=== PATIENT | male | born 1970 | race Caucasian/White ===

== ENCOUNTER 2018-05-24 02:05 | Observation (INO) ==
[2018-05-24] MEDS ORDERED: Aspirin 81 MG TAB.CHEW PO ONE (02:21)
[2018-05-24] MEDS ORDERED: *HR* FentaNYL (PF) 100 MCG/2 ML VIAL IVP ONE (02:22)
--- NOTE | 2018-05-24 02:25 | Emergency Department Note ---
Disposition Clinical Impression: Chest pain Qualifiers: Chest pain type: chest pain on breathing Qualified Code(s): R07.1 - Chest pain on breathing; R07.81 - Pleurodynia Disposition: Admitted As Inpatient Condition: Good Time of Disposition: 04:49 General Adult HPI - General Chief complaint: ED Chest Pain Stated complaint: CHEST PAIN Time Seen by Provider: 05/24/18 02:12 Source: patient Limitations: no limitations Nursing Notes Reviewed: Yes Vital Signs Reviewed: Yes - History of Present Illness HPI Narrative: Left sided chest pain sharp in nature radiates to his left shoulder does have associated shortness of breath no fevers or chills no cough. No history of any cardiac history. Is a diabetic. No provoking or alleviating factors. Began while the patient was at rest sitting in his cruiser. Pain Scale: 8 - Related Data Home Medications Medication Instructions Recorded Confirmed Aspirin [Adult Low Dose Aspirin EC] 81 mg PO QAM 12/21/15 05/09/18 Escitalopram [Lexapro] 10 mg PO QAM 12/21/15 05/09/18 Omeprazole [PriLOSEC] 20 mg PO QAM 12/21/15 05/09/18 Allergies Allergy/AdvReac Type Severity Reaction Status Date / Time iodine Allergy Swelling Verified 08/18/17 08:45 of Lip/Tongue/Throat hydrocodone [From Vicodin] AdvReac Hives Verified 08/18/17 08:46 Hydromorphone [From Dilaudid] AdvReac Nausea Verified 08/18/17 08:46 All systems ED: reviewed and negative except as stated. Constitutional: Denies: fever, chills Cardiovascular: Reports: chest pain. Denies: palpitations, syncope Respiratory: Reports: dyspnea (When he takes a deep breath it catches and hurts in the left side of his chest.). Denies: cough Gastrointestinal: Denies: abdominal pain, nausea, vomiting, diarrhea Genitourinary: Denies: urgency, dysuria, frequency Musculoskeletal: Denies: back pain, neck pain Integumentary: Denies: rash Neurological: Denies: headache, weakness, numbness, paresthesias Past Medical History - Past Medical History Attestation: Yes The following information was validated with the patient. Source: patient Medical history: Reports: diabetes, GERD, hypertension Surgical history: Reports: appendectomy, herniorrhaphy Psychiatric history: Reports: depression - Social History Smoking Status: Never smoker Smokeless Tobacco Status: No Alcohol use: Reports: none Drug use: Reports: none Physical Exam - General Limitations: no limitations General appearance: alert, in no apparent distress - Head Head exam: atraumatic, normocephalic, normal inspection - Eye Eye exam: Present: normal appearance, PERRL, EOMI - ENT ENT exam: normal exam, normal oropharynx, mucous membranes moist - Neck Neck exam: Present: normal inspection, full ROM, trachea midline - Chest Chest inspection: Present: normal inspection, symmetric chest wall rise - Respiratory Respiratory exam: Present: normal lung sounds bilaterally. Absent: respiratory distress, accessory muscle use - Cardiovascular Cardiovascular exam: Present: regular rate, normal rhythm, normal heart sounds - Abdominal Exam Abdominal exam: Present: soft, Non-Tender. Absent: tenderness, distention, guarding, rebound, rigidity - Extremities Exam Extremities exam: Present: normal inspection, full ROM. Absent: tenderness, pedal edema - Back Exam Back exam: Present: normal inspection, full ROM. Absent: tenderness - Neurological Exam Neurological exam: Present: alert, oriented X3 - Psychiatric Psychiatric exam: Present: normal affect, normal mood - Skin Skin exam: Present: warm, dry, intact, normal color Course Course Narrative: Male patient presenting complaints were complaining of left sided chest pain that began shortly before his arrival here. Describes it as a sharp pain in the left side of his chest that radiates to his left shoulder. Not reproducible on palpation. Denies any trauma. Does report shortness of breath associated with taking deep breaths. No cough. No history of blood clot. No history of STEMI before. 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 Denies any recent illnesses. Does state that he was admitted about a month ago for syncope and dehydration. Patient is resting comfortably at this time. He is not tachypneic. He is not diaphoretic. Patient's lab workup was normal. Troponin is negative. However he does have pain that started within the past hour. Patient is not tachycardic. No signs of STEMI QT. Patient's lab workup is unremarkable. No signs of pneumonia on the chest x-ray. He states that he was still having the pain after the aspirin and fentanyl. We will do a nitroglycerin trial on patient and admitted to the hospital or chest pain rule out. Of note we did end up ordering a d-dimer due to patient's chest pain and reported shortness of breath associated with the pain but not currently when he showed up. It was elevated. I was concerned due to patient's sedentary time and his please cruiser daily. I did discuss this with the hospitalist is aware of his elevated d-dimer. - Consultations Consultation #1: Dr hamilton accepted Pt in stable condition. Time: 03:35 Vital Signs Temperature 98.8 F 05/24/18 02:07 Pulse Rate 88 05/24/18 02:07 Respiratory Rate 18 05/24/18 02:07 Blood Pressure 145/88 05/24/18 02:07 O2 Sat by Pulse Oximetry 96 05/24/18 02:07 Temperature 98.1 F 05/24/18 04:25 Pulse Rate 71 05/24/18 04:25 Respiratory Rate 16 05/24/18 04:25 Blood Pressure 116/75 05/24/18 04:25 O2 Sat by Pulse Oximetry 90 05/24/18 04:25 Oxygen Delivery Oxygen Delivery Room Air Medical Decision Making - Medical Records Medical records reviewed: Yes I reviewed the patient's medical records. - Lab Data Lab results reviewed: Yes I reviewed the patient's lab results. Result diagrams: 05/24/18 02:10 05/24/18 02:10 Lab Results 05/24/18 05/24/18 05/24/18 Range/Units 02:10 02:10 02:10 WBC 9.9 (4.3-11.1) K/mcL RBC 5.41 (4.19-5.50) M/mcL Hgb 15.8 (12.9-16.9) g/dL Hct 46.5 (37.5-50.1) % MCV 86.0 (83.0-100.0) fL MCH 29.2 (28.0-33.3) pg MCHC 34.0 (31.6-35.5) g/dL RDW 12.5 (11.5-14.5) % Plt Count 321 (140-400) K/mcL MPV 10.3 (9.4-12.4) fL Immature Gran % 0.3 (0-4) % Seg Neutrophils % 63.6 % Lymphocytes % 25.4 % Monocytes % 9.1 % Eosinophils % 1.2 % Basophils % 0.4 % Neutrophils # 6.3 (1.6-8.9) K/mcL Lymphocytes # 2.5 (0.6-4.6) K/mcL Monocytes # 0.9 (0.0-1.3) K/mcL Eosinophils # 0.1 (0.0-0.6) K/mcL Basophils # 0.0 (0.0-0.2) K/mcL PT 12.0 (9.4-12.1) Seconds INR 1.1 APTT 32.9 (26.0-36.0) Seconds D-Dimer (0-500) ng/mLFEU Sodium 136 (136-145) mEq/L Potassium 4.3 (3.5-5.1) mEq/L Chloride 101 (98-107) mEq/L Carbon Dioxide 22 L (23-29) mEq/L BUN 9 (6-20) mg/dL Creatinine 0.96 (0.70-1.30) mg/dL Est GFR ( Amer) > 60 (> 60) Est GFR (Non-Af Amer) > 60 (> 60) BUN/Creatinine Ratio 9 (6-26) Glucose 293 H (70-105) mg/dL POC Glucose (70-99) mg/dL Calculated Osmolality 291 (280-300) Calcium 9.2 (8.6-10.3) mg/dL Troponin I < 0.03 (< 0.04) ng/mL 05/24/18 05/24/18 Range/Units 02:10 04:28 WBC (4.3-11.1) K/mcL RBC (4.19-5.50) M/mcL Hgb (12.9-16.9) g/dL Hct (37.5-50.1) % MCV (83.0-100.0) fL MCH (28.0-33.3) pg MCHC (31.6-35.5) g/dL RDW (11.5-14.5) % Plt Count (140-400) K/mcL MPV (9.4-12.4) fL Immature Gran % (0-4) % Seg Neutrophils % % Lymphocytes % % Monocytes % % Eosinophils % % Basophils % % Neutrophils # (1.6-8.9) K/mcL Lymphocytes # (0.6-4.6) K/mcL Monocytes # (0.0-1.3) K/mcL Eosinophils # (0.0-0.6) K/mcL Basophils # (0.0-0.2) K/mcL PT (9.4-12.1) Seconds INR APTT (26.0-36.0) Seconds D-Dimer 2508 H (0-500) ng/mLFEU Sodium (136-145) mEq/L Potassium (3.5-5.1) mEq/L Chloride (98-107) mEq/L Carbon Dioxide (23-29) mEq/L BUN (6-20) mg/dL Creatinine (0.70-1.30) mg/dL Est GFR ( Amer) (> 60) Est GFR (Non-Af Amer) (> 60) BUN/Creatinine Ratio (6-26) Glucose (70-105) mg/dL POC Glucose 226 H (70-99) mg/dL Calculated Osmolality (280-300) Calcium (8.6-10.3) mg/dL Troponin I (< 0.04) ng/mL - Radiology Data Radiology results reviewed: Yes I reviewed the patient's radiology results. Chest X-Ray 05/24/18 02:21 IMPRESSION: No acute cardiopulmonary disease. D/ / Justin York MD / Justin York MD Interpreting Provider: Justin York MD - EKG Data EKG #1 EKG attestation: Yes I reviewed and interpreted this EKG. EKG results narrative: Normal sinus rhythm at a rate 87. MN interval is 141. Castration is 99. QT is 337. QTC is 381. No signs of acute ischemia. No previous to compare to. EKG #2 EKG attestation: Yes I reviewed and interpreted this EKG. EKG results narrative: Normal sinus rhythm at a rate of 72. MN interval is 146. QRS duration is 105. QT is 375. QTC is 399. No signs of acute ischemia.
[2018-05-24 02:32] LABS: Basophils % 0.4 %; Eosinophils # 0.1 K/mcL (0.0-0.6); Eosinophils % 1.2 %; Hematocrit 46.5 % (37.5-50.1); Hemoglobin 15.8 g/dL (12.9-16.9); Immature Granulocytes % 0.3 % (0-4); Lymphocytes # 2.5 K/mcL (0.6-4.6); Lymphocytes % 25.4 %; Mean Corpuscular Hemoglobin 29.2 pg (28.0-33.3); Mean Platelet Volume 10.3 fL (9.4-12.4); Monocytes # 0.9 K/mcL (0.0-1.3); Monocytes % 9.1 %; Neutrophils # 6.3 K/mcL (1.6-8.9); Platelet Count 321 K/mcL (140-400); Red Blood Count 5.41 M/mcL (4.19-5.50); Red Cell Distribution Width 12.5 % (11.5-14.5); Segmented Neutrophils % 63.6 %
[2018-05-24 02:38] LABS: INR 1.1
[2018-05-24 02:41] LABS: Activated Partial Thrombo Time 32.9 Seconds (26.0-36.0)
[2018-05-24 02:56] LABS: BUN/Creatinine Ratio 9 (6-26); Blood Urea Nitrogen 9 mg/dL (6-20); Calcium 9.2 mg/dL (8.6-10.3); Carbon Dioxide 22 mEq/L (23-29); Chloride 101 mEq/L (98-107); Glucose 293 mg/dL (70-105); Osmolality,Calculated 291 (280-300); Potassium 4.3 mEq/L (3.5-5.1); Sodium 136 mEq/L (136-145); Troponin I < 0.03 ng/mL (< 0.04); eGFR For Non-African Americans > 60 (> 60)
[2018-05-24] MEDS ORDERED: Naloxone 0.4 MG/ML INJ IVP PRN (03:59)
[2018-05-24] MEDS ORDERED: D5% in Water 1,000 ML IVC PRN (04:22)
[2018-05-24] MEDS ORDERED: Dextrose Gel 15 GM/37.5 ML TUBE PO PRN ×2 (04:22)
[2018-05-24] MEDS ORDERED: *HR* Dextrose 50 % in Water (Syg) 50 ML SYRINGE IVP PRN (04:22)
--- NOTE | 2018-05-24 04:29 | Internal Med History&Physical ---
Date of Encounter: 05/24/18 Time of Encounter: 16:20 Internal Medicine - H&P: HPI Chief complaint: Left sided chest pain starting today History of present illness: Mr. Dove is a 47 year old male with pmh of obesity, type 2 dm, hypertension presenting with complaints of left sided chest pain starting today. 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 denies any nausea or vomiting. Says he has never had this kind of pain before. No particular aggravating factors. Pain was relieved by fentanyl in the ER. In the ER, one set of troponins was negative. Past Med Surg Social Fam HX - Past Medical History Medical history: diabetes, GERD, hypertension Psychiatric history: depression - Past Surgical History Surgical History: appendectomy, herniorrhaphy Additional surgical history: left knee surgery, right ankle surgery - Social History Smoking Status: Never smoker Smokeless Tobacco Status: No Alcohol use: none Drug use: none - Family History Father Hx Family Endocrine Disorder: Yes (DM) Internal Medicine - H&P: Meds Aspirin [Adult Low Dose Aspirin EC] 81 mg PO QAM 12/21/15 [History] Escitalopram [Lexapro] 10 mg PO QAM 12/21/15 [History] Omeprazole [PriLOSEC] 20 mg PO QAM 12/21/15 [History] 3 Allergy/AdvReac Type Severity Reaction Status Date / Time iodine Allergy Swelling Verified 08/18/17 08:45 of Lip/Tongue/Throat hydrocodone [From Vicodin] AdvReac Hives Verified 08/18/17 08:46 Hydromorphone [From Dilaudid] AdvReac Nausea Verified 08/18/17 08:46 All Systems PM: A 10-system review of systems was performed and is negative for pertinent findings except as documented above in the HPI. - Constitutional Constitutional: no chills, no fever(s), no night sweats - EENT Eyes: no change in vision, no discharge, no pain, no photophobia Ears: no ear discharge, no ear pain, no tinnitus Nose, mouth and throat: no dysphagia, no nasal discharge, no neck pain, no sore throat - Cardiovascular Cardiovascular ROS IM: chest pain, no diaphoresis, no dyspnea, no lightheadedness, no palpitations, no syncope - Respiratory Respiratory: dyspnea, no cough, no wheezing, no excessive phlegm production - Gastrointestinal Gastrointestinal: no abdominal pain, no diarrhea, no hematemesis, no hematochezia, no melena, no nausea, no vomiting - Musculoskeletal Musculoskeletal ROS IM: no numbness, no tingling - Integumentary Integumentary IM: no rash, no unusual bruising - Neurological Neurological ROS: no confusion, no convulsions, no focal weakness, no numbness, no tingling, no tremor(s) - Hematologic/Lymphatic Hematologic/Lymphatic: no easy bruising - Constitutional Vitals: Temp Pulse Resp BP Pulse Ox 98.8 F 72 17 139/85 95 05/24/18 02:07 05/24/18 03:51 05/24/18 03:51 05/24/18 03:51 05/24/18 03:51 Exam: Obese gentleman - Head Head exam: Present: atraumatic, normocephalic - Eye Eye exam: Present: PERRL, conjuntiva pink, sclera anicteric Pupils: Present: PERRL - Neck Neck exam general surgery: Present: supple, trachea midline. Absent: lymphadenopathy - Respiratory Respiratory exam: Present: CTAB. Absent: accessory muscle use, rales, rhonchi, wheezes - Cardiovascular Cardiovascular exam: Present: RRR, +S1, +S2. Absent: diastolic murmur, gallop, rubs, systolic murmur - GI/Abdominal GI/Abdominal exam: Present: normal bowel sounds, soft, no peritoneal signs. Absent: distended, tenderness - Extremities Exam Extremities exam: Present: warm, radial pulses palpable and symmetrical. Absent : calf tenderness, cyanotic, pedal edema - Neurological Exam Neurological exam: Present: CN II-XII intact, oriented X3, no focal deficits. Absent: pronater drift, facial droop, speech deficit - Skin Skin exam: Present: dry, intact Internal Med - H&P Results - Labs CBC & Chem 7: 05/24/18 04:52 05/24/18 04:52 - Assessment and plan (1) Chest pain Current Visit: Yes Status: Acute Assessment and plan: Chest pain r/o MO. Pt has typical left sided chest pain and risk factors for CAD including diabetes, hypertension, obesity. 1st set of troponins negative. Will trend troponins, obtain 2D echo and stress test. D dimer was also elevated , patient is not hypoxic at this time, however, will obtain V./q scan to rule out PE in light of shortness of breath. Patient has iodine allergy hence CT contradindicated. Started on aspirin and nitroglycerin prn addendum. 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
[2018-05-24] MEDS ORDERED: Nitroglycerin 0.4 MG TAB.SUBL SL PRN (04:37)
--- NOTE | 2018-05-24 04:58 | Emergency Department Note ---
Disposition Clinical Impression: Chest pain Qualifiers: Chest pain type: chest pain on breathing Qualified Code(s): R07.1 - Chest pain on breathing Disposition: Admitted As Inpatient Condition: Good Time of Disposition: 04:49 General Adult HPI - General Chief complaint: ED Chest Pain Stated complaint: CHEST PAIN Time Seen by Provider: 05/24/18 02:12 Source: patient Limitations: no limitations Nursing Notes Reviewed: Yes Vital Signs Reviewed: Yes - History of Present Illness Pain Scale: 8 - Related Data Home Medications Medication Instructions Recorded Confirmed Aspirin [Adult Low Dose Aspirin EC] 81 mg PO QAM 12/21/15 05/09/18 Escitalopram [Lexapro] 10 mg PO QAM 12/21/15 05/09/18 Omeprazole [PriLOSEC] 20 mg PO QAM 12/21/15 05/09/18 Allergies Allergy/AdvReac Type Severity Reaction Status Date / Time iodine Allergy Swelling Verified 08/18/17 08:45 of Lip/Tongue/Throat hydrocodone [From Vicodin] AdvReac Hives Verified 08/18/17 08:46 Hydromorphone [From Dilaudid] AdvReac Nausea Verified 08/18/17 08:46 Constitutional: Denies: fever, chills Cardiovascular: Reports: chest pain. Denies: palpitations, syncope Respiratory: Reports: dyspnea (When he takes a deep breath it catches and hurts in the left side of his chest.). Denies: cough Gastrointestinal: Denies: abdominal pain, nausea, vomiting, diarrhea Genitourinary: Denies: urgency, dysuria, frequency Musculoskeletal: Denies: back pain, neck pain Integumentary: Denies: rash Neurological: Denies: headache, weakness, numbness, paresthesias Past Medical History - Past Medical History Medical history: Reports: diabetes, GERD, hypertension Surgical history: Reports: appendectomy, herniorrhaphy Psychiatric history: Reports: depression - Social History Smoking Status: Never smoker Smokeless Tobacco Status: No Alcohol use: Reports: none Drug use: Reports: none Physical Exam - General Limitations: no limitations General appearance: alert, in no apparent distress Course Vital Signs Temperature 98.8 F 05/24/18 02:07 Pulse Rate 88 05/24/18 02:07 Respiratory Rate 18 05/24/18 02:07 Blood Pressure 145/88 05/24/18 02:07 O2 Sat by Pulse Oximetry 96 08/01/18 02:07 Temperature 98.1 F 05/24/18 04:25 Pulse Rate 71 05/24/18 04:25 Respiratory Rate 16 05/24/18 04:25 Blood Pressure 116/75 05/24/18 04:25 O2 Sat by Pulse Oximetry 90 05/24/18 04:25 Oxygen Delivery Oxygen Delivery Room Air Medical Decision Making - Lab Data Lab results reviewed: Yes I reviewed the patient's lab results. Result diagrams: 05/24/18 02:10 05/24/18 02:10 Lab Results 05/24/18 05/24/18 05/24/18 Range/Units 02:10 02:10 02:10 WBC 9.9 (4.3-11.1) K/mcL RBC 5.41 (4.19-5.50) M/mcL Hgb 15.8 (12.9-16.9) g/dL Hct 46.5 (37.5-50.1) % MCV 86.0 (83.0-100.0) fL MCH 29.2 (28.0-33.3) pg MCHC 34.0 (31.6-35.5) g/dL RDW 12.5 (11.5-14.5) % Plt Count 321 (140-400) K/mcL MPV 10.3 (9.4-12.4) fL Immature Gran % 0.3 (0-4) % Seg Neutrophils % 63.6 % Lymphocytes % 25.4 % Monocytes % 9.1 % Eosinophils % 1.2 % Basophils % 0.4 % Neutrophils # 6.3 (1.6-8.9) K/mcL Lymphocytes # 2.5 (0.6-4.6) K/mcL Monocytes # 0.9 (0.0-1.3) K/mcL Eosinophils # 0.1 (0.0-0.6) K/mcL Basophils # 0.0 (0.0-0.2) K/mcL PT 12.0 (9.4-12.1) Seconds INR 1.1 APTT 32.9 (26.0-36.0) Seconds D-Dimer (0-500) ng/mLFEU Sodium 136 (136-145) mEq/L Potassium 4.3 (3.5-5.1) mEq/L Chloride 101 (98-107) mEq/L Carbon Dioxide 22 L (23-29) mEq/L BUN 9 (6-20) mg/dL Creatinine 0.96 (0.70-1.30) mg/dL Est GFR ( Amer) > 60 (> 60) Est GFR (Non-Af Amer) > 60 (> 60) BUN/Creatinine Ratio 9 (6-26) Glucose 293 H (70-105) mg/dL Calculated Osmolality 291 (280-300) Calcium 9.2 (8.6-10.3) mg/dL Troponin I < 0.03 (< 0.04) ng/mL 05/24/18 Range/Units 02:10 WBC (4.3-11.1) K/mcL RBC (4.19-5.50) M/mcL Hgb (12.9-16.9) g/dL Hct (37.5-50.1) % MCV (83.0-100.0) fL MCH (28.0-33.3) pg MCHC (31.6-35.5) g/dL RDW (11.5-14.5) % Plt Count (140-400) K/mcL MPV (9.4-12.4) fL Immature Gran % (0-4) % Seg Neutrophils % % Lymphocytes % % Monocytes % % Eosinophils % % Basophils % % Neutrophils # (1.6-8.9) K/mcL Lymphocytes # (0.6-4.6) K/mcL Monocytes # (0.0-1.3) K/mcL Eosinophils # (0.0-0.6) K/mcL Basophils # (0.0-0.2) K/mcL PT (9.4-12.1) Seconds INR APTT (26.0-36.0) Seconds D-Dimer 2508 H (0-500) ng/mLFEU Sodium (136-145) mEq/L Potassium (3.5-5.1) mEq/L Chloride (98-107) mEq/L Carbon Dioxide (23-29) mEq/L BUN (6-20) mg/dL Creatinine (0.70-1.30) mg/dL Est GFR ( Amer) (> 60) Est GFR (Non-Af Amer) (> 60) BUN/Creatinine Ratio (6-26) Glucose (70-105) mg/dL Calculated Osmolality (280-300) Calcium (8.6-10.3) mg/dL Troponin I (< 0.04) ng/mL - Radiology Data Radiology results reviewed: Yes I reviewed the patient's radiology results. Chest X-Ray 05/24/18 02:21 IMPRESSION: No acute cardiopulmonary disease. D/ / Justin York MD / Justin York MD Interpreting Provider: Justin York MD - EKG Data EKG #1 EKG results narrative: EKG shows a normal sinus rhythm with ventricular rate of 87. No ST segment elevation or depression. No arrhythmia or ectopy. Normal EKG. EKG #2 EKG attestation: Yes I reviewed and interpreted this EKG. EKG results narrative: Repeat EKG shows a normal sinus rhythm with ventricular rate is 72. No acute ST segment elevation or depression. No significant change from initial EKG. Attestation Statement - Attestation Attestation: I, Martínez Fragoso MD, personally evaluated this patient and discussed their management with the resident physician. I reviewed the resident's note and agree with the documented findings, medical decision making, and plan of care. 47-year-old male presents to the emergency department with a complaint of acute onset of sharp stabbing left lower chest pain just shortly prior to arrival. No radiation of the pain. No shortness of breath but states the pain is worse with taking a deep breath. No cough or fever. No history of any heart disease. Patient has had some hypertension in the past and was on medication previously but was taken off because his hypertension was controlled. He does not smoke. No family history of heart disease. On examination patient is a well-developed well-nourished well-appearing male in no acute distress. He is alert and oriented 3. There is no cyanosis or diaphoresis. There is some tenderness palpation over the left lower anterior chest wall. Breath sounds are clear and equal bilaterally. Heart regular rate and rhythm. Abdomen soft and nontender with normal bowel sounds. Labs reviewed. Troponin normal. Patient was found to have an elevated d-dimer of 2500. This did not return until after patient had been transferred to the floor. The hospitalist was notified of the d-dimer. The hospitalist, Dr. Torres, was consulted and accepted admission of the patient.
[2018-05-24] MEDS ORDERED: *HR* Heparin 5,000 UNIT/ML VIAL SQ SCH (06:00)
[2018-05-24] MEDS ORDERED: Regadenoson 0.4 MG/5 ML SYRINGE IVP ONE (06:06)
[2018-05-24 06:10] LABS: Basophils % 0.5 %; Eosinophils # 0.1 K/mcL (0.0-0.6); Eosinophils % 1.5 %; Hemoglobin 14.5 g/dL (12.9-16.9); Immature Granulocytes % 0.3 % (0-4); Lymphocytes # 2.4 K/mcL (0.6-4.6); Lymphocytes % 27.6 %; Mean Corpuscular HGB Conc 34.5 g/dL (31.6-35.5); Mean Corpuscular Hemoglobin 29.5 pg (28.0-33.3); Mean Corpuscular Volume 85.5 fL (83.0-100.0); Mean Platelet Volume 10.5 fL (9.4-12.4); Monocytes # 0.9 K/mcL (0.0-1.3); Monocytes % 10.3 %; Neutrophils # 5.1 K/mcL (1.6-8.9); Platelet Count 279 K/mcL (140-400); Red Blood Count 4.91 M/mcL (4.19-5.50); Red Cell Distribution Width 12.5 % (11.5-14.5); Segmented Neutrophils % 59.8 %
[2018-05-24 06:33] LABS: Troponin I < 0.03 ng/mL (< 0.04)
[2018-05-24 06:35] LABS: BUN/Creatinine Ratio 12 (6-26); Blood Urea Nitrogen 10 mg/dL (6-20); Carbon Dioxide 24 mEq/L (23-29); Chloride 105 mEq/L (98-107); Glucose 243 mg/dL (70-105); Magnesium 1.9 mg/dL (1.6-2.6); Osmolality,Calculated 291 (280-300); Phosphorous 3.7 mg/dL (2.7-4.5); Potassium 3.7 mEq/L (3.5-5.1); Sodium 137 mEq/L (136-145); eGFR For Non-African Americans > 60 (> 60)
[2018-05-24 07:11] LABS: Estimated Average Glucose 324 mg/dl; Hemoglobin A1C 12.9 %
[2018-05-24] MEDS ORDERED: Aspirin Enteric Coated 81 MG Tablet PO SCH (09:00)
[2018-05-24] MEDS: Insulin LISPRO 300 UNITS/3 ML VIAL SQ SCH ×2 (09:37→12:41)
[2018-05-24 12:12] VITALS: BP 152/95
--- NOTE | 2018-05-24 14:34 | Discharge Summary ---
- NOTES TO OUTPATIENT PROVIDER Notes to Outpatient Provider: A1c still 12.9%. Pt was unable to have both V/Q scan and stress test due to iodine allergy, recommend that he have outpatient stress test. Date of Encounter: 05/24/18 Time of Encounter: 11:30 - Discharge Diagnosis (1) Diabetes mellitus Priority: Secondary Status: Chronic Assessment and Plan: Uncontrolled. A1c remains unchanged from [place] at 12.9%. Patient reports that he has been started on new insulin and that his Accu-Cheks at home are actually improving. Continue current medication and Accu-Chek regimen. 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 D dimer was also elevated, patient is not hypoxic at this time, nor is he short of breath. VQ scan showed low probability for PE. Due to pt having iodine allergy and reported allergic reaction to CT contrast, pt had VQ scan and cannot have stress test for 3 days. Troponins negative, echo showed LVEF 60%, indeterminant diastolic function, mild MR. Chest x-ray negative for any acute cardiopulmonary disease. Pain is not reproducible with palpation, deep inspiration, or movement. Patient reports he is still having intermittent / Recommend follow up with PCP for outpatient stress test. Unclear etiology for chest pain at this time. Qualifiers: Chest pain type: chest pain on breathing Qualified Code(s): R07.1 - Chest pain on breathing; R07.81 - Pleurodynia (3) Hypertension Priority: Secondary Status: Acute Assessment and Plan: Chronic. Continue home meds Qualifiers: Qualified Code(s): I10 - Essential (primary) hypertension (4) DVT prophylaxis Priority: Secondary Status: Acute Assessment and Plan: SQ Heparin (5) Morbid obesity with BMI of 40.0-44.9, adult Priority: Secondary Status: Chronic Assessment and Plan: Encourage lifestyle modifications, diet control, better glycemic control, and increase exercise daily. Hospital course: Mr. Dove is a 47 year old male with past medical history including diabetes , hyperlipidemia, hypertension, depression, hepatic granuloma, DVT, morbid obesity. Patient presented to the emergency department with chest pain while at rest. 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 Admission note reports that patient was apprehending someone in a parking lot when chest pain began, he denies that today. Patient reports chest pain with left lower chest with radiation to the left shoulder with shortness of breath, diaphoresis. He denies any nausea or vomiting. He denies any alleviating or aggravating factors and pain resolved on its own in the emergency department. She has had mild 1/10 chest pain today, he describes it as dull, pain became worse with echocardiogram and pressure transducer on his chest. D-dimer was elevated on arrival, VQ scan showed low probability for PE. Pt has no leg pain or swelling. Patient has iodine allergy, was unable to have CTA of his chest to rule out a PE. He has had been in the past and states that his throat swells up and he was unable to be premedicated. Troponins were negative x 3, chest xray is negative. Patient was unable to have a stress test while he was here due to having VQ scan, they cannot have these 2 tests within 3 days. Labs are unremarkable other than his A1c which remains 12.9%, where it was in March. Pt reports that he was not able to afford his insulin a few months ago, he can now and reports that his blood sugars at home are usually under 120 for the last 2 months since he was able to get his insulin. Patient is to be discharged in stable condition and recommend close follow-up with primary care for stress test since he was unable to have one here. Discharge discussed with: patient - Time Spent with Patient Total time spent providing and/or coordinating discharge services: Less than 30 minutes - Discharge Medications Home Medications: Aspirin [Adult Low Dose Aspirin EC] 81 mg PO QAM 12/21/15 [History] Aspirin [Lo-Dose Aspirin EC] 81 mg PO DAILY 05/24/18 [History] FLUoxetine HCl [Prozac] 40 mg PO DAILY 05/24/18 [History] Insulin DETEMIR [Levemir Flextouch] 40 unit SQ HS 05/24/18 [History] Insulin LISPRO [Humalog Kwikpen U-100] 0 unit SQ TID PRN 05/24/18 [History] Lisinopril [Zestril] 10 mg PO DAILY 05/24/18 [History] Omeprazole [PriLOSEC] 40 mg PO DAILY 05/24/18 [History] Allergies/Adverse Reactions: 3 Allergy/AdvReac Type Severity Reaction Status Date / Time iodine Allergy Swelling Verified 08/18/17 08:45 of Lip/Tongue/Throat hydrocodone [From Vicodin] AdvReac Hives Verified 08/18/17 08:46 Hydromorphone [From Dilaudid] AdvReac Nausea Verified 08/18/17 08:46 Date of admission: 05/24/18 03:47 Primary care physician: Laure Melendez GENERAL INTERNAL MEDICINE DOCTOR Discharging clinician: Mine Ray Anticipated date of discharge: 05/24/18 - Constitutional Vitals: Temp Pulse Resp BP Pulse Ox 98.1 F 76 18 152/95 93 05/24/18 12:11 05/24/18 12:11 05/24/18 12:11 05/24/18 12:11 05/24/18 12:11 General appearance: Present: cooperative, A&O X 3, morbidly obese, pleasant, no acute distress, answers questions appropriately - Head Head exam: Present: atraumatic, normal inspection, normocephalic - Eye Eye exam: Present: normal appearance, conjuntiva pink, sclera anicteric - Neck Neck exam general surgery: Present: supple, trachea midline. Absent: lymphadenopathy, tenderness - Respiratory Respiratory exam: Present: CTAB. Absent: accessory muscle use, chest wall tenderness, rales, respiratory distress, rhonchi, wheezes - Cardiovascular Cardiovascular exam: Present: RRR, +S1, +S2. Absent: diastolic murmur, gallop, rubs, systolic murmur - GI/Abdominal GI/Abdominal exam: Present: normal bowel sounds, soft. Absent: distended, hepatomegaly, tenderness - Extremities Exam Extremities exam: Present: normal capillary refill, normal inspection, warm, radial pulses palpable and symmetrical. Absent: calf tenderness, cyanotic, pedal edema, tenderness - Neurological Exam Neurological exam: Present: alert, oriented X3, no focal deficits. Absent: facial droop, speech deficit - Skin Skin exam: Present: dry, intact, normal color, warm. Absent: rash - Patient Status Disposition: Home, Self-Care Condition: Good Functional capacity at discharge: independent ambulation Overall status at discharge: patient is back to baseline - Discharge Instructions Follow Up With: Laure Melendez CNP [Primary Care Provider] - 05/29/18 10:30 am Additional Instructions: Please follow up with Chanel COREY Melendez in the next 5-7 days for a recheck. Take your medications as directed. Return to your normal activities as tolerated. Modify your diet to reflect an 1800 ADA diet, monitor your blood sugar frequently, speak with Chanel if you need to go to diabetes education. Exercise daily Return to the emergency department as needed for any other problems or concerns , or if your symptoms return or worsen. - Diet and Activity Activity: resume usual activities as tolerated Diet: diabetic diet, low fat, low cholesterol
--- NOTE | 2018-05-24 20:18 | Electrocardiograph Report ---
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
--- NOTE | 2018-05-24 20:20 | Electrocardiograph Report ---
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
== END 2018-05-24 16:11 | disposition home or self-care (01) ==
LOC: 3BNU 02:05 → EMEROO 02:05 → 3BNU 04:00
PROVIDERS: ADMIT Internal Medicine; ATTEND Internal Medicine

== ENCOUNTER 2020-09-22 00:40 | Observation (INO) ==
[2020-09-22] MEDS ORDERED: Ondansetron 4 MG/2 ML VIAL ONE (01:16)
[2020-09-22 01:19] LABS: Basophils % 0.4 %; Eosinophils # 0.1 K/mcL (0.0-0.6); Eosinophils % 0.6 %; Hematocrit 46.8 % (37.5-50.1); Hemoglobin 15.4 g/dL (12.9-16.9); Immature Granulocytes % 0.3 % (0-4); Mean Corpuscular HGB Conc 32.9 g/dL (31.6-35.5); Mean Corpuscular Hemoglobin 27.8 pg (28.0-33.3); Mean Corpuscular Volume 84.5 fL (83.0-100.0); Mean Platelet Volume 10.3 fL (9.4-12.4); Monocytes # 0.9 K/mcL (0.0-1.3); Monocytes % 9.5 %; Neutrophils # 6.5 K/mcL (1.6-8.9); Platelet Count 325 K/mcL (140-400); Red Blood Count 5.54 M/mcL (4.19-5.50); Red Cell Distribution Width 12.7 % (11.5-14.5); Segmented Neutrophils % 68.2 %; White Blood Count 9.5 K/mcL (4.3-11.1)
[2020-09-22] MEDS ORDERED: Ondansetron 4 MG/2 ML VIAL IVP ONE (01:19)
[2020-09-22 01:43] LABS: Alanine Aminotransferase 89 Units/L (7-52); Albumin 4.4 g/dL (3.5-5.7); Albumin/Globulin Ratio 1.4 (1.1-2.2); Alkaline Phosphatase 133 Units/L (34-104); Aspartate Amino Transferase 43 Units/L (13-39); BUN/Creatinine Ratio 16 (6-26); Bilirubin,Direct 0.1 mg/dL (0.0-0.2); Bilirubin,Indirect 0.2 mg/dL (0.0-1.0); Bilirubin,Total 0.3 mg/dL (0.3-1.0); Blood Urea Nitrogen 18 mg/dL (6-20); Calcium 9.5 mg/dL (8.6-10.3); Carbon Dioxide 23 mEq/L (23-29); Chloride 104 mEq/L (98-107); Creatine Kinase 235 Units/L (30-223); Globulin 3.2 g/dL (2.4-3.5); Glucose 191 mg/dL (70-105); Osmolality,Calculated 293 (280-300); Potassium 3.2 mEq/L (3.5-5.1); Sodium 138 mEq/L (136-145); Total Protein 7.6 g/dL (6.4-8.9); Troponin I < 0.03 ng/mL (< 0.04); eGFR For African Americans > 60 (> 60); eGFR For Non-African Americans > 60 (> 60)
[2020-09-22 03:34] LABS: Adenovirus Not Detected (Not Detect); Bordetella Pertussis Not Detected (Not Detect); Chlamydophila pneumoniae Not Detected (Not Detect); Coronavirus 229E Not Detected (Not Detect); Coronavirus HKU1 Not Detected (Not Detect); Coronavirus NL63 Not Detected (Not Detect); Coronavirus OC43 Not Detected (Not Detect); Human Metapneumovirus Not Detected (Not Detect); Human Rhinovirus/Enterovirus Not Detected (Not Detect); Influenza A Subtype 2009 H1 Not Detected (Not Detect); Influenza B Not Detected (Not Detect); Mycoplasma pneumoniae Not Detected (Not Detect); Parainfluenza Virus 1 Not Detected (Not Detect); Parainfluenza Virus 2 Not Detected (Not Detect); Parainfluenza Virus 3 Not Detected (Not Detect); Parainfluenza Virus 4 Not Detected (Not Detect); Respiratory Syncytial Virus Not Detected (Not Detect); SARS-CoV-2 Not Detected (Not Detect)
[2020-09-22] MEDS ORDERED: Naloxone 0.4 MG/ML INJ IVP PRN (05:03)
[2020-09-22] MEDS ORDERED: *HR* Dextrose 50 % in Water (Vial) 50 ML VIAL IVP PRN (05:06)
[2020-09-22] MEDS ORDERED: D5% in Water 1,000 ML IVC PRN (05:06)
[2020-09-22] MEDS ORDERED: Dextrose Gel 15 GM/37.5 ML TUBE PO PRN ×2 (05:06)
[2020-09-22] MEDS ORDERED: Potassium Chloride Elixir 20 MEQ/15 ML UDC PO ONE (05:06)
[2020-09-22] MEDS ORDERED: Ipratropium/Albuterol Neb 3 ML IH PRN (05:54)
[2020-09-22] MEDS: *HR* Heparin 5,000 UNIT/ML VIAL SQ SCH ×2 (06:45→17:10)
[2020-09-22 08:21] LABS: ABG Base Excess 2 mEq/L (-2 to 3); ABG HCO3 28 mEq/L (21-27); ABG Oxygen Saturation 94 % (95-98); ABG PCO2 46 mmHg (35-45); ABG PH 7.39 pH Units (7.32-7.45); ABG PO2 72 mmHg (85-104); ABG TCO2 29 mEq/L (20-26)
[2020-09-22] MEDS: Insulin LISPRO 300 UNITS/3 ML VIAL SQ SCH ×3 (08:37→17:08)
[2020-09-22] MEDS ORDERED: 0.9 % Sodium Chloride 1,000 ML IVC SCH (09:30)
[2020-09-22] MEDS: Azithromycin 500 MG in 0.9 % Sodium Chloride 250 ML IVPB SCH (12:28)
[2020-09-22] MEDS: cefTRIAXone 1,000 MG in 0.9 % Sodium Chloride Mini Bag 100 ML IVP SCH (13:41)
[2020-09-22] MEDS: 0.9 % Sodium Chloride 1,000 ML IVC SCH ×3 (13:47→20:36)
[2020-09-22] MEDS ORDERED: Insulin LISPRO 300 UNITS/3 ML VIAL SQ SCH (22:30)
[2020-09-22] MEDS ORDERED: Gabapentin 300 MG CAPSULE PO SCH (22:30)
[2020-09-22] MEDS: Acetaminophen 325 MG TABLET PO PRN (22:41)
[2020-09-23 04:09] LABS: Creatine Kinase 206 Units/L (30-223); Phosphorous 3.9 mg/dL (2.7-4.5)
[2020-09-23] MEDS: *HR* Heparin 5,000 UNIT/ML VIAL SQ SCH (05:45)
[2020-09-23 07:32] VITALS: BP 150/97
[2020-09-23] MEDS: Insulin LISPRO 300 UNITS/3 ML VIAL SQ SCH (08:17)
[2020-09-23] MEDS: cefTRIAXone 1,000 MG in 0.9 % Sodium Chloride Mini Bag 100 ML IVP SCH (08:20)
[2020-09-23] MEDS: Acetaminophen 325 MG TABLET PO PRN (08:28)
[2020-09-23] MEDS ORDERED: *HR* Insulin Regular U-500 500 UNIT/ML SQ SCH (09:00)
[2020-09-23] MEDS ORDERED: Gabapentin 300 MG CAPSULE PO SCH (09:00)
[2020-09-23] MEDS ORDERED: Aspirin 81 MG TAB.CHEW PO SCH (09:00)
[2020-09-23 09:28] LABS: Alanine Aminotransferase 84 Units/L (7-52); Albumin 3.7 g/dL (3.5-5.7); Albumin/Globulin Ratio 1.2 (1.1-2.2); Alkaline Phosphatase 111 Units/L (34-104); Aspartate Amino Transferase 41 Units/L (13-39); BUN/Creatinine Ratio 14 (6-26); Bilirubin,Total 0.5 mg/dL (0.3-1.0); Blood Urea Nitrogen 14 mg/dL (6-20); Calcium 8.3 mg/dL (8.6-10.3); Carbon Dioxide 22 mEq/L (23-29); Chloride 105 mEq/L (98-107); Globulin 3.1 g/dL (2.4-3.5); Glucose 258 mg/dL (70-105); Osmolality,Calculated 291 (280-300); Potassium 4.3 mEq/L (3.5-5.1); Sodium 136 mEq/L (136-145); Total Protein 6.8 g/dL (6.4-8.9); eGFR For African Americans > 60 (> 60); eGFR For Non-African Americans > 60 (> 60)
[2020-09-23] MEDS ORDERED: GuaiFENesin/Dextromethorphan TABLET PO SCH (09:45)
[2020-09-23] MEDS: Azithromycin 500 MG in 0.9 % Sodium Chloride 250 ML IVPB SCH (11:39)
== END 2020-09-23 13:49 | disposition home or self-care (01) ==
LOC: 3BNU 00:40 → EMEROOARM 00:40 → SUATTDRO 03:53 → 3BNU 04:54
PROVIDERS: ADMIT Family Medicine; ATTEND Internal Medicine